=== PATIENT | male | born 1945 | race African-American/Black ===

== ENCOUNTER 2016-11-21 06:40 | Inpatient (IN) | payer BC ==
--- NOTE | ~2016-11-21 | DS ---
Discharge Summary [facility] [address] [place]. [address] NAME: ZAYNAB AMATO : 47 STATUS : DIS IN PAT#: [id number] AGE: 71 ADM/REG DATE : 11/21/16 MR#: [id number] REPORT SERV DATE: 11/25/16 DICTATED BY: HECTOR THRASHER DATE: 11/24/16 REPORT STATUS : Draft TRANSCRIBED BY: MODL DATE: 11/24/16 ADMISSION DATE: 11/21/2016 DISCHARGE DATE: 11/24/2016 FINAL DIAGNOSES: 1. Acute right basal ganglia cerebrovascular accident. 2. Diabetes. 3. Hypertension. 4. Coronary artery disease. 5. Periphery artery disease. DIAGNOSTIC EXAMS: Echocardiogram showing normal left ventricular size and systolic function with EF of 55%. No regional wall motion abnormalities. Normal right ventricular size and systolic function. Normal left atrial size. Aortic valve sclerosis without stenosis. Negative intravenous bubble study. No evidence of intracardiac shunt. CAT scan of the brain showing somewhat indeterminate age right basal ganglia infarct measuring at least 1.4 cm in diameter extending cranially into the rosario radiata. No other acute intracranial pathology. Left mastoid effusion of indeterminate age. No fluid levels or bony trabecular destruction. Chest x-ray. No acute cardiopulmonary disease. MRI of the brain, large late acute ischemic infarct, right basal ganglia, extending cranially into the rosario radiata measuring up to 2.8 x 1.1 cm on axial images. No surrounding significant mass effect. No hemorrhagic changes. Underlying mild diffuse cerebral involutional changes, deep white matter chronic microvascular ischemic change. Indeterminate age, left greater than right mastoiditis with mastoid effusion present. MRA of the head showing unremarkable intracranial MRA. MRA of the neck showing moderate severity 60% diameter stenosis origin of the right external carotid artery. Otherwise, unremarkable MRA of the remaining carotid artery distribution, no significant atherosclerotic plaque or stenosis. Normal caliber and antegrade flow bilateral vertebral arteries. Repeat chest x-ray, normal chest. Carotid ultrasound, category 1 disease involving the cervical portion of the right and left internal carotid arteries. Vertebral arteries are patent with antegrade flow. Nodules in the visualized portion of both thyroid lobes measuring up to 5 mm on the right and 9 mm in the left suggest further evaluation with dedicated thyroid ultrasound. CT abdomen and pelvis, hepatomegaly, mild fatty infiltration. No acute GI or obstruction is seen. Appendix is identified which appears unremarkable, high-grade canal stenosis, L4- L5. HOSPITAL COURSE: Please refer to the H and P done by Dr. Camacho dated 11/21/2016. Briefly, this is a 71-year-old male with CAD, PAD, diabetes, hypertension, and noncompliant with checking his sugars. The patient had a sudden slurring of speech while he was working and he was then brought to the emergency room. CAT scan shows the above findings. An MRI was done, which shows a CVA. We got Neurology involved and they got PT and OT which cleared Discharge Summary [address] [address] NAME: ZAYNAB AMATO : 47 STATUS : DIS IN PAT#: [id number] AGE: 71 ADM/REG DATE : 11/21/16 MR#: [id number] REPORT SERV DATE: 11/25/16 DICTATED BY: HECTOR THRASHER DATE: 11/24/16 REPORT STATUS : Draft TRANSCRIBED BY: LINDA DATE: 11/24/16 the patient to go home. Meanwhile, the patient's dysarthria improved. We got Speech involved and they recommended outpatient speech therapy. The patient's hemoglobin A1c was found to be 8.4, and we started the patient on insulin, and he seems to have his blood sugar in a better control. He was initially worried that he might lose his job and he is on insulin, but he said he would use it and control his diabetes and then discuss it with his PCP later on and how to get him out of it so that he would not lose his job. The patient wanted me to talk with his daughter, and we discussed the same thing with her and time I spent with total discussion and discharge is 40 minutes. The patient will be will be discharged now with the above diagnoses. He will follow up with his PCP, Dr. Kidd, in one to two weeks. Follow up with ENT as an outpatient as well. The patient's chronic problems, he would need an outpatient thyroid ultrasound for possible thyroid nodules. He will be on the following medications. Aspirin 325 mg a day, Lipitor 80 mg at bedtime, Coreg down to 6.25 mg twice a day, vitamin D 50,000 units a week, Neurontin 300 mg a day, subcu insulin protocol level 2, prednisolone acetate ophthalmic one drop four times a day to the left eye, Levemir 10 units a day, Lotrel 10/40 one capsule a day, ketorolac ophthalmic four times a day, Januvia 100 mg once a day, Tylenol p.r.n. DICTATED BY: Joe Acevedo/LINDA Hector Thrasher M.D. / [id number] CC: DO Dr. Bernabe Almaguer
--- NOTE | ~2016-11-21 | HP ---
History And Physical [address] 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 PRIMARY CARE DOCTOR: Unclear. HISTORY OF PRESENT ILLNESS: This is a 71-year-old male with known history of diabetes, apparently on metformin, Januvia, apparently he was on Lantus though in 2001, history hypertension on BEVERLY inhibitor, hyperlipidemia, known history of PAD, has some type of stent procedure either in his aorta or coronary artery disease, done at [facility]. The patient was noticed by coworkers to have slurred speech around 2030 time on 11/20/2016. The patient denied any headache or any unilateral weakness. No change in sensation. The patient came here, a CT of the brain that only showed indeterminate age right basal ganglia infarction. He had an EKG that is normal sinus rhythm, isolated T-wave inversion in lead 3. No ischemic ST-T changes. The patient denies fevers, chills, nausea, vomiting, diarrhea, chest pain, chest pressure, or shortness of breath. Blood pressure, 210 systolic. REVIEW OF SYSTEMS: 10-point review of systems done, see HPI. Otherwise, negative. PAST MEDICAL HISTORY: See above. PAST SURGICAL HISTORY: See above. SOCIAL HISTORY: He stopped smoking in 1969. He used to smoke three packs a day for several years. No alcohol. No drug use currently. FAMILY HISTORY: Hypertension at least one parent. HOME MEDICATIONS: Do not have any dosages or frequencies, but yet takes metformin, Januvia, unclear BEVERLY inhibitor, possibly statin. Unclear, if he takes baby aspirin at home. ALLERGIES: NO KNOWN DRUG ALLERGIES. OBJECTIVE: VITAL SIGNS: 210 systolic from 163/84, 79 pulse, 16 respiration rate, 100% on room air. GENERAL: No acute distress. HEENT: PERRLA. No scleral icterus. CARDIOVASCULAR: He does have a right carotid bruit. Otherwise, regular rate. No murmur. RESPIRATORY: Decreased breath sounds bibasilarly. No wheezes. No crackles. ABDOMEN: Nontender, nondistended. Positive bowel sounds. EXTREMITIES: No edema. No ecchymosis. History And Physical [address] [address] NAME: ZAYNAB AMATO : 47 STATUS : ADM IN [facility]#: [id number] AGE: 71 ADM/REG DATE : 11/21/16 MR#: [id number] REPORT SERV DATE: 11/21/16 DICTATED BY: ANTIONETTE CAMACHO DATE: 11/21/16 REPORT STATUS : Draft TRANSCRIBED BY: LINDA DATE: 11/21/16 NEURO: Bit slurred speech, his speech seems a bit slurred, otherwise he is A and O x4. 5/5 power bilateral upper and lower extremities. LABORATORY DATA: 6.1 white count, 14 hemoglobin, 136,000 platelets. 3.8 potassium, 28 bicarb, 1.49 creatinine, unclear baseline. Troponin is negative. INR 1.1. Albumin is 3.5, 142 sodium, 108 chloride, 12 BUN, 202 sugar. ASSESSMENT AND PLAN: 1. Slurred speech at 2030 hours, 11/20/2016 with right basal gangliar indeterminate infarct. 2. Hypertension. 3. Hyperlipidemia. 4. Peripheral artery disease. 5. Diabetes. PLAN: We will go ahead and admit this patient. We will request records from [facility], placed on aspirin 325, permissive hypertension for the first 48-72 hours. We will get an echo, carotid ultrasound given right carotid bruit. MRI. If he has any acute stroke, we will ask for Neurology intervention. Place on Lipitor 80. CT abdomen and pelvis and FENa regarding his LEIGH versus CKD. See rest of my orders including speech therapy, rule out dysphagia. All questions were answered. It took well over 60 minutes to do reference [place] and [place]. WST/MODL Antionette Camacho DO / [id number] CC: Antionette Camacho, DO
--- NOTE | ~2016-11-21 | CN ---
Consultation Report [facility] [address] [place]. [address] NAME: AZYNAB AMATO : 47 STATUS : ADM IN [facility]#: [id number] AGE: 71 ADM/REG DATE : 11/21/16 MR#: [id number] REPORT SERV DATE: 11/22/16 DICTATED BY: DATE: REPORT STATUS : Draft TRANSCRIBED BY: MODL DATE: 11/22/16 NEUROLOGY CONSULTATION DATE OF CONSULTATION: 11/22/2016 REASON FOR CONSULT: Acute stroke. HISTORY OF PRESENT ILLNESS: This is a 71-year-old male who presented to [facility] on 11/21/2016 secondary to acute onset of dysarthria with the patient noted to have problem talking around 2030 hours on 11/20/2016. According to H and P, the patient has difficulty to discuss the time of onset of dysarthria, but currently denies any difficulty. The patient denies any focal weakness and numbness. Denies any diplopia, but does reports tinnitus. Denies similar symptoms in the past. Denies recent illness, fever, chills, nausea, vomiting, chest pain, or shortness of breath. The patient reports compliance with medication, but reports periodically forget to take his medication. REVIEW OF SYSTEMS: Negative except for those mentioned in the HPI. PAST MEDICAL HISTORY: Significant for hypertension as well as diabetes. SOCIAL HISTORY: Denies current tobacco, alcohol, or recreational drug usage. The patient stopped smoking in 1970s. FAMILY HISTORY: Significant for hypertension. ALLERGIES: THE PATIENT REPORTS NO KNOWN DRUG ALLERGIES. HOME MEDICATIONS: Consist of acetaminophen, amlodipine, Coreg, vitamin D, Neurontin, Amaryl, Acular ophthalmic drop, pravastatin and prednisolone as well as Januvia. PHYSICAL EXAMINATION: VITAL SIGNS: At time of evaluation, the patient was noted to have vital signs with T-max of 100.1, heart rate of 66-95, respiration of 16-21, blood pressure of 116-178 over 59-84. GENERAL: The patient is well-developed, well-nourished, in no acute distress. CARDIOVASCULAR: Regular rate and rhythm. No carotid bruits were otherwise auscultated. PULMONARY: Clear to auscultation bilaterally. NEUROLOGICAL: Generally, the patient is alert, oriented to person, place, year, month and followed simple and 2-step commands and mild dysarthria was noted. No significant aphasia was noted. Intact registration, difficulty with recall. The patient was noted to be able to follow simple and 2-step commands. Cranial nerves 2 through 12, pupils equal, round, and reactive to light. Horizontal eye movement was noted to be intact with intact peripheral vision. Reports symmetrical facial sensation. Decreased nasolabial fold as well as mild facial asymmetry in the left face was noted with tongue deviated to the left. Mild Consultation Report [facility] [id number] [place]. [address] NAME: ZAYNAB AMATO : 47 STATUS : ADM IN PAT#: [id number] AGE: 71 ADM/REG DATE : 11/21/16 MR#: [id number] REPORT SERV DATE: 11/22/16 DICTATED BY: DATE: REPORT STATUS : Draft TRANSCRIBED BY: MODL DATE: 11/22/16 asymmetric palatal movement. Decreased hearing in bilateral ears. The patient complains of tinnitus in the right ear, otherwise 5/5 bilateral upper and lower extremity strength. Pronator drift in the left upper extremity. Normal [id number] examination without ataxia. Reports symmetrical sensation. Deep tendon reflex was attenuated throughout. The patient demonstrated mild unsteady ataxic gait at time of evaluation. LABORATORY DATA: Laboratory studies demonstrated white blood cell count of 6.1, hemoglobin of 14.0, hematocrit of 39.8, and platelet count of 136. Chemistry panel: Sodium 142, potassium of 3.8, chloride 108, bicarb 28, BUN of 12, creatinine 1.49, glucose of 202, calcium of 8.9, magnesium 1.9, serum cholesterol 188, HDL of 42, LDL of 106, triglyceride of 201, CPK of 423, hemoglobin A1c of 8.4. Urinalysis demonstrated negative leukocyte esterase, negative nitrite. CT scan of the brain demonstrated no acute process with MRI of the head demonstrated right basal ganglia stroke. No hemorrhage or edema was otherwise visualized. The patient's MRA demonstrated external carotid occlusion in the right, but otherwise no internal carotid occlusion or thrombosis. MRA of the head demonstrated no significant stenosis. IMPRESSION: Right middle cerebral artery territory subcortical/basal ganglia stroke. We will continue the patient on aspirin and Lipitor. We are recommending strict diabetic control. The patient's current NIH stroke scale was noted to be 1, recommending PT/OT and Speech Therapy to evaluate and treat. Echocardiogram is currently pending. RECOMMENDATION: 1. Aspirin and Lipitor. 2. Diabetic control. 3. Echocardiogram, which is pending. 4. PT/OT, Speech Therapy to evaluate and treat. CCH/MODL Leonid Dailey MD / [id number] CC: Hebert Camacho DO
[2016-11-21 06:04] LABS: BASOPHILS 0.2 %; BASOPHILS ABSOLUTE 0.01 10/3/uL (0.0-0.16); EOSINOPHILS 1.5 %; EOSINOPHILS ABSOLUTE 0.09 10/3/uL (0.0-0.53); ER CBC TAT 0 Hrs 03 Mins; HEMATOCRIT 39.8 % (40.0-51.0); IMMATURE GRANULOCYTES 0.2 %; IMMATURE GRANULOCYTES ABSOLUTE 0.01 10/3/uL (0.0-0.11); LYMPHOCYTES 21.5 %; MEAN CORPUS HGB CONC 35.2 g/dL (32.0-36.0); MEAN CORPUSCULAR VOLUME 88.2 fL (80-100); MEAN PLATELET VOLUME 9.7 fL (9.2-13.0); MONOCYTES ABSOLUTE 0.79 10/3/uL (0.21-1.20); NEUTROPHILS 63.6 %; NEUTROPHILS ABSOLUTE 3.86 10/3/uL (2.02-8.40); PLATELET COUNT 136 10/3/uL (150-400); RBC DISTRIBUTION WIDTH 13.1 % (12.0-16.0); RED CELL COUNT 4.51 10/6/uL (4.7-6.1); WHITE BLOOD CELLS 6.1 10/3/uL (4.5-10.5)
[2016-11-21 06:05] LABS: MANUAL DIFF NO %
[2016-11-21 06:12] LABS: INTERNATIONAL NORMAL RATI 1.1 UNITS (-); PARTIAL THROMBO TIME 24.8 SEC (22.5-37.2); PROTIME (NOT ORD) 13.7 SEC (12.0-14.5)
[2016-11-21 06:21] LABS: A/G RATIO 0.9 (0.7-1.9); ALBUMIN 3.5 G/DL (3.5-5.0); BUN (BLOOD UREA NITROGEN) 12 MG/DL (6-23); CALCIUM, SERUM 8.9 MG/DL (8.5-10.4); CHLORIDE, SERUM 108 MMOL/L (96-112); CO2 (CARBON DIOXIDE) 28 MMOL/L (24-34); CREATININE 1.49 MG/DL (0.70-1.30); GFR AFRICAN AMERICAN 54 ML/MIN (>=60); GFR NON AFRICAN AMERICAN 47 ML/MIN (>=60); GLOBULIN 3.7 G/DL (2.5-4.1); GLUCOSE, SERUM 202 MG/DL (60-99); POTASSIUM, SERUM 3.8 MMOL/L (3.5-5.3); SGOT(AST) 20 U/L (5-40); SGPT(ALT) 38 U/L (5-65); SODIUM, SERUM 142 MMOL/L (135-148); TOTAL BILIRUBIN 0.5 MG/DL (0-1.2); TOTAL PROTEIN 7.2 G/DL (6.0-8.5); TROPONIN I <0.02 NG/ML (<0.05)
[2016-11-21 06:22] LABS: ALKALINE PHOSPHATASE 82 U/L (45-117)
[~2016-11-21 06:40] MED LIST: ACTOS45 PO; AMARYL4 PO; ASAB PO; COREG25 PO; GLUCOPHAGE1000 MG PO; LISINOPRIL40 MG PO; MOBIC15 MG PO; NEUR300 PO; PRAVACHOL40 MG PO; VITE PO
[2016-11-21] MEDS ORDERED: LOTREL1 CA5 PO (10:32)
[2016-11-21] MEDS ORDERED: VITD PO (10:32)
[2016-11-21] MEDS ORDERED: PREDFORTE OPH (10:33)
[2016-11-21] MEDS ORDERED: AMARYL4 PO (10:33)
[2016-11-21] MEDS ORDERED: JANUVIA100 MG PO (10:33)
[2016-11-21] MEDS ORDERED: ACULAR OPH (10:33)
[2016-11-21] MEDS ORDERED: LIPITOR80 MG PO (10:34)
[2016-11-21] MEDS ORDERED: ACET500CAP PO (10:34)
[2016-11-21] MEDS ORDERED: COREG6 PO (10:34)
[2016-11-21] MEDS ORDERED: NEUR300 PO (10:34)
[2016-11-21 14:49] LABS: CHOL/HDL RATIO(NOT ORDER) 4.5 (0-5); CHOLESTEROL 188 MG/DL (< 200); CK-MB 2.5 NG/ML; CPK 325 U/L (0-200); HDL CHOLESTEROL 42 MG/DL (> 39); LDL CHOLESTEROL 106 MG/DL (< 130); NON-HDL CHOLESTEROL 146 MG/DL (< 160); PHOSPHORUS, SERUM 2.4 MG/DL (2.5-4.5); TRIGLYCERIDE 201 MG/DL (< 150); TROPONIN I <0.02 NG/ML (<0.05)
[2016-11-21 21:01] LABS: CPK 368 U/L (0-200); TROPONIN I <0.02 NG/ML (<0.05)
[2016-11-21 21:02] LABS: CK-MB 2.1 NG/ML
[2016-11-21 22:24] LABS: GLYCOHEMOGLOBIN (HbA1c) 8.4 % (4.7-6.1)
[2016-11-22 06:41] LABS: CK-MB 1.2 NG/ML; CPK 423 U/L (0-200)
[2016-11-22 13:07] LABS: ASCORBIC ACID (UR NOT ORDER) NEG (NEG); BILIRUBIN, URINE NEGATIVE (NEG); KETONE, URINE NEGATIVE (NEG); LEUKOCYTE ESTERASE(NOT OR NEG (NEG); WBC (NOT ORDERED) (RFLEX) 1 (0-5)
[2016-11-23 05:36] LABS: HEMATOCRIT 41.4 % (40.0-51.0); HEMOGLOBIN 14.6 g/dL (13.6-17.8); MEAN CORPUS HGB CONC 35.3 g/dL (32.0-36.0); MEAN CORPUSCULAR HEMOGLOB 31.5 pg (26.0-34.0); MEAN CORPUSCULAR VOLUME 89.4 fL (80-100); MEAN PLATELET VOLUME 10.7 fL (9.2-13.0); PLATELET COUNT 150 10/3/uL (150-400); RBC DISTRIBUTION WIDTH 12.8 % (12.0-16.0); RED CELL COUNT 4.63 10/6/uL (4.7-6.1); WHITE BLOOD CELLS 4.4 10/3/uL (4.5-10.5)
[2016-11-23 05:38] LABS: MANUAL DIFF YES %
[2016-11-23 06:03] LABS: BUN (BLOOD UREA NITROGEN) 13 MG/DL (6-23); CHLORIDE, SERUM 104 MMOL/L (96-112); CO2 (CARBON DIOXIDE) 30 MMOL/L (24-34); CREATININE 1.43 MG/DL (0.70-1.30); FREE T4 0.98 NG/DL (0.76-1.46); GFR AFRICAN AMERICAN 57 ML/MIN (>=60); GFR NON AFRICAN AMERICAN 49 ML/MIN (>=60); PHOSPHORUS, SERUM 2.9 MG/DL (2.5-4.5); POTASSIUM, SERUM 3.8 MMOL/L (3.5-5.3); SODIUM, SERUM 139 MMOL/L (135-148); ULTRASENSITIVE TSH 0.598 MCIU/ML (0.358-3.740)
[2016-11-23 06:04] LABS: GLUCOSE, SERUM 157 MG/DL (60-99)
[2016-11-23 06:09] LABS: EOSINOPHILS 5 %; EOSINOPHILS ABSOLUTE (CALC) 0.22 10/3/uL (0.0-0.53); LYMPHOCYTES 62 %; LYMPHOCYTES ABSOLUTE (CALC) 2.73 10/3/uL (0.67-4.30); MONOCYTES 5 %; MONOCYTES ABSOLUTE (CALC) 0.22 10/3/uL (0.21-1.20); NEUTROPHILS ABSOLUTE (CALC) 1.23 10/3/uL (2.02-8.40); PLATELET ESTIMATE ADQ (ADEQUATE); RBC MORPHOLOGY NORM (NORMAL); SEGMENTED NEUTROPHIL (0) 28 %; TOTAL NUCLEATED CELLS 100
[2016-11-24 04:37] LABS: BASOPHILS 0.2 %; BASOPHILS ABSOLUTE 0.01 10/3/uL (0.0-0.16); EOSINOPHILS 4.5 %; HEMOGLOBIN 13.3 g/dL (13.6-17.8); LYMPHOCYTES 55.5 %; LYMPHOCYTES ABSOLUTE 2.44 10/3/uL (0.67-4.30); MEAN CORPUSCULAR HEMOGLOB 31.2 pg (26.0-34.0); MEAN CORPUSCULAR VOLUME 89.2 fL (80-100); MEAN PLATELET VOLUME 9.7 fL (9.2-13.0); MONOCYTES 10.5 %; MONOCYTES ABSOLUTE 0.46 10/3/uL (0.21-1.20); NEUTROPHILS 29.3 %; NEUTROPHILS ABSOLUTE 1.29 10/3/uL (2.02-8.40); PLATELET COUNT 131 10/3/uL (150-400); RBC DISTRIBUTION WIDTH 12.8 % (12.0-16.0); RED CELL COUNT 4.26 10/6/uL (4.7-6.1); WHITE BLOOD CELLS 4.4 10/3/uL (4.5-10.5)
[2016-11-24 04:38] LABS: MANUAL DIFF NO %
[2016-11-24 04:52] LABS: BUN (BLOOD UREA NITROGEN) 15 MG/DL (6-23); CHLORIDE, SERUM 102 MMOL/L (96-112); CO2 (CARBON DIOXIDE) 28 MMOL/L (24-34); CREATININE 1.27 MG/DL (0.70-1.30); GFR AFRICAN AMERICAN 66 ML/MIN (>=60); GFR NON AFRICAN AMERICAN 57 ML/MIN (>=60); GLUCOSE, SERUM 152 MG/DL (60-99); POTASSIUM, SERUM 3.9 MMOL/L (3.5-5.3); SODIUM, SERUM 137 MMOL/L (135-148)
[2016-11-24] MEDS ORDERED: NOVOLOG SC (11:08)
[2016-11-24] MEDS ORDERED: LEVEMIR SC (11:10)
[2016-11-24] MEDS ORDERED: ASABAYER PO (11:19)
== END 2016-11-24 12:52 | disposition home or self-care (01) | DRG 65 ==
LOC: ER 06:40 → ER/OF 10:17 → 1SO 10:57
PROVIDERS: Hospitalist; Internal Medicine
DX: I63.233 Cerebral infarction due to unspecified occlusion or stenosis of bilateral carotid arteries (principal); N17.9 Acute kidney failure, unspecified; E11.22 Type 2 diabetes mellitus with diabetic chronic kidney disease; E11.65 Type 2 diabetes mellitus with hyperglycemia; I12.9 Hypertensive chronic kidney disease with stage 1 through stage 4 chronic kidney disease, or unspecified chronic kidney disease; R29.701 NIHSS score 1; N18.9 Chronic kidney disease, unspecified; E78.5 Hyperlipidemia, unspecified; I70.0 Atherosclerosis of aorta; R13.12 Dysphagia, oropharyngeal phase; I73.9 Peripheral vascular disease, unspecified; R47.1 Dysarthria and anarthria; I25.10 Atherosclerotic heart disease of native coronary artery without angina pectoris; Z87.891 Personal history of nicotine dependence; Z91.14 Patient's other noncompliance with medication regimen; Z79.84 Long term (current) use of oral hypoglycemic drugs; Z79.899 Other long term (current) drug therapy
CPT/HCPCS: 70450; 70544; 70547; 70551; 71010; 71020; 74176; 80048; 80053; 80061; 81001; 82140; 82550; 82553; 82570; 82607; 82746; 82962; 83036; 83735; 84100; 84156; 84300; 84439; 84443; 84484; 85025; 85610; 85730; 92523-GN; 92610-GN; 93005; 93306; 93880; 97161-GP; 97165-GO; 99285; A9270-GY